=== PATIENT | male | born 1955 | race Caucasian/White ===

== ENCOUNTER 2016-08-15 18:19 | Emergency (ER) | payer OTHER, MEDICARE ==
[~2016-08-15] VITALS: Ht 182.9 cm; Wt 145.2 kg
[~2016-08-15 18:19] MED LIST: HYDROCHLOROTHIA1 TA2 PO; IBUPROFEN800 M1 PO; KEFLEX500 MG PO; MULTIVITAMIN1 TAB PO; NORCO 325 MG-51 TAB PO; OXYCODONE HCL20 M1 PO; PERCOCET 325 MG1 TA2 PO; PERCOCET 5-3251 EACH PO; POLYTRIM O200 GTT/BO OPH; VICODIN 500 MG-1 TAB PO; ZITHROMAX Z-PA250 M1 PO
[2016-08-15 18:24] VITALS: BP 168/90
--- NOTE | 2016-08-15 19:13 | ED GI/GU/ABDOMINAL COMPLAINT ---
History of Present Illness General Chief Complaint: General Adult Stated Complaint: RIGHT SIDE GROIN PAIN Source: patient Exam Limitations: no limitations Vital Signs & Intake/Output Vital Signs & Intake/Output Vital Signs Date Time Temp Pulse Resp B/P Pulse O2 O2 Flow FiO2 Ox Delivery Rate 08/15 1824 96.5 104 16 168/90 96 Room Air ED Intake and Output 08/16 0000 08/15 1200 Intake Total Output Total Balance Patient 320 lb Weight Allergies Coded Allergies: venom-honey bee (bee venom (honey bee)) (Intermediate, SWELLING 12/27/15) Penicillins (HIVES 12/27/15) Reconcile Medications LISINOPRIL/HYDROCHLOROTHIAZIDE (Lisinopril-Hctz 20-12.5 MG Tab) 1 TAB TAB 1 TAB PO BID BP (Reported) Oxycodone HCl/Acetaminophen (Percocet 5-325 MG Tablet) 5 MG-325 MG TABLET 1 TAB PO 4XDP PRN PAIN TEN...[id number] Oxycodone HCl/Acetaminophen (Percocet 5-325 MG Tablet) 1 EACH TABLET 1-2 TAB PO Q6P PRN PAIN Triage Note: 61 Y/O MALE C/O R GROIN PAIN X A FEW WEEKS; STATES HE HAD A HERNIA REPAIR IN JANUARY AND WAS DOING OK HOWEVER PAIN RETURNED AND HAS GOTTEN WORSE. REPORTS INTERMITTENT NAUSEA AND DIAPHORESIS. DENIES URINARY SYMPTOMS. DENIES HEMATURIA. STATES HE HAD A CT SCAN AT [facility] LAST WEEK AND WAS TOLD BY DR BORGES "EVERYTHING WAS FINE". STATES PAIN IS INTERMITTENT AND "STABBING" AT TIMES. Triage Nurses Notes Reviewed? yes Onset: Gradual Duration: week(s):, waxing and waning Timing: remote history Quality/Severity: cramping Location: right groin Radiation: no radiation Activities at Onset: none Prior Abdominal Problems: none Modifying Factors: Improves With: lying down, rest. Worsens With: movement, palpation. Associated Symptoms: focal probing pain in his right groin area. HPI: 61-year-old gentleman with a history of a right inguinal hernia, status post mesh repair last year. He states that, "the surgery will went fine benign feel like there is pain in the area where I had the hernia." He notes that he will experience a dull throbbing pain in the right groin area where the mesh is. He has had these symptoms for several weeks intermittently. He states that in the morning when he first wakes up he does not feel the pain. However, as he progresses through the day he feels increasing discomfort. He he has no nausea vomiting diarrhea fever chills shortness of breath dysuria. He is otherwise well. Past History Travel History Traveled to [place] past 21 day No Medical History Any Pertinent Medical History? 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 No Review of Systems Review of Systems Constitutional: Reports: no symptoms. EENTM: Reports: no symptoms. Respiratory: Reports: no symptoms. Cardiovascular: Reports: no symptoms. GI: Reports: no symptoms. Genitourinary: Reports: no symptoms. Musculoskeletal: Reports: no symptoms. Skin: Reports: no symptoms. Neurological/Psychological: Reports: no symptoms. Hematologic/Endocrine: Reports: no symptoms. Immunologic/Allergic: Reports: no symptoms. All Other Systems: Reviewed and Negative Physical Exam Physical Exam General Appearance: well developed/nourished, mild distress Head: atraumatic, normal appearance Eyes: Bilateral: normal appearance. Ears, Nose, Throat, Mouth: hearing grossly normal, dental injury, moist mucous membrane Neck: normal inspection, supple, full range of motion, normal alignment Respiratory: normal breath sounds, chest non-tender, no respiratory distress, quiet respiration, lungs clear Cardiovascular: regular rate/rhythm Gastrointestinal: right groin area is without obvious hernias. Small easily reducible umbilical hernia. Back: normal inspection, normal range of motion Extremities: normal range of motion Neurologic/Psych: no motor/sensory deficits, awake, alert, oriented x 3 Skin: intact, normal color, warm/dry Core Measures ACS in differential dx? No Severe Sepsis Present: No Septic Shock Present: No Progress Differential Diagnosis: hernia vs post op pain vs other. Plan of Care: pt to follow up with dr. borges... no obvious hernia.... prior ct scan negative. Initial ED EKG: none Departure Departure Disposition: HOME OR SELF CARE Condition: Stable Clinical Impression Primary Impression: Postoperative pain Secondary Impressions: Inguinal hernia Referrals: ROSE DELACRUZ MD (PCP/Family) Departure Forms: Customer Survey General Discharge Information Prescriptions: Current Visit Scripts Oxycodone HCl/Acetaminophen (Percocet 5-325 MG Tablet) 1 TAB PO 4XDP PRN PAIN #10 TAB TEN...[id number] Comments Patient with benign exam. I sent him home with a short course of Percocet, and encouraged him to follow-up with Dr. Borges.
[2016-08-15] MEDS ORDERED: PERCOCET 5-3251 EACH PO (19:27)
== END 2016-08-15 20:03 ==
LOC: ERH 18:19
DX: G89.18 Other acute postprocedural pain (principal); K40.90 Unilateral inguinal hernia, without obstruction or gangrene, not specified as recurrent

== ENCOUNTER 2016-08-19 15:58 | Emergency (ER) | payer OTHER, MEDICARE ==
[~2016-08-19] VITALS: Ht 182.9 cm; Wt 145.2 kg
--- NOTE | 2016-08-19 18:37 | ED GENERAL ADULT ---
History of Present Illness General Chief Complaint: Male Genitourinary Problems Stated Complaint: GROIN PAIN Source: patient Exam Limitations: no limitations Vital Signs & Intake/Output Vital Signs & Intake/Output Vital Signs Date Time Temp Pulse Resp B/P Pulse O2 O2 Flow FiO2 Ox Delivery Rate 08/190 96.7 79 18 155/87 98 Room Air 08/19 1830 77 20 172/99 97 Room Air 08/19 1612 96.5 88 18 147/81 96 Room Air Allergies Coded Allergies: venom-honey bee (bee venom (honey bee)) (Intermediate, SWELLING 12/27/15) Penicillins (HIVES 12/27/15) Reconcile Medications Cyclobenzaprine HCl 10 MG TABLET 1 TAB PO TID SPASMS Lisinopril (Prinivil) 20 MG TABLET 1 TAB PO BID BP (Reported) Meloxicam (Mobic) 15 MG TABLET 1 TAB PO DAILY pain Methylprednisolone. (Medrol) 4 MG TAB.DS.PK 1 DP PO AD BACK PAIN 6 on day 1 then reduce by one tablet daily until gone Oxycodone HCl/Acetaminophen (Percocet 5-325 MG Tablet) 5 MG-325 MG TABLET 1-2 TAB PO Q6P PRN PAIN Pantoprazole Sodium 40 MG TABLET. 1 TAB PO DAILY GI (Reported) Triage Note: PT STATES THAT HE HAD HERNIA SURGERY IN DECEMBER AND THAT HE HAS MESH IN PLACE, CAME TO ER LAST WEEK DUE TO R SIDE GROIN PAIN AND THEY FOUND NOTHING, WENT TO DR HAMILTON WHO DID THE SURGERY AND HAD CT SCAN THAT WAS FINE, PT STATES THAT HE THINKS THAT MIGHT BE SOMETHING WRONG WITH HIS HIP. WAS TAKING PERCOCET BUT RAN OUT AND HAS PAIN MANAGEMENT APPOINTMENT NEXT WEEK Triage Nurses Notes Reviewed? yes Onset: Abrupt Duration: week(s):, intermittent Timing: recent history Injury Environment: home Severity: moderate, severe No Modifying Factors: none HPI: 61-year-old male comes into emergency room with complaints of right groin pain and right back pain shooting down his right leg. Patient reports that he had a hernia repair in the spring of [address] Hamilton. He reports that he contacted Dr. Hamilton when he started experiencing this pain back in June and got an outpatient CAT scan which was normal. Symptoms have been persistent and still. Patient denies any fever chills vomiting blood in his urine chest pain shortness of breath. Patient gets tingling down his leg. Pain is worse with range of motion in the back. (LACHELLE ARGUETA) Past History Travel History Traveled to [place] past 21 day No Medical History Any Pertinent Medical History? 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 No (LACHELLE ARGUETA) Review of Systems Review of Systems Constitutional: Reports: no symptoms. EENTM: Reports: no symptoms. Respiratory: Reports: no symptoms. Cardiovascular: Reports: no symptoms. GI: Reports: no symptoms. Genitourinary: Reports: no symptoms. Musculoskeletal: Reports: see HPI. Skin: Reports: no symptoms. Neurological/Psychological: Reports: see HPI. Hematologic/Endocrine: Reports: no symptoms. Immunologic/Allergic: Reports: no symptoms. All Other Systems: Reviewed and Negative (LACHELLE ARGUETA) Physical Exam Physical Exam General Appearance: well developed/nourished, alert, awake, mild distress Head: atraumatic, normal appearance Eyes: Bilateral: normal appearance, EOMI. Ears, Nose, Throat: normal ENT inspection, hearing grossly normal Neck: normal inspection Respiratory: no respiratory distress Gastrointestinal: soft, tenderness (mild right lower quadrant) Back: decreased range of motion, right-sided paraspinal tenderness Extremities: normal inspection, normal range of motion Neurologic/Psych: awake, alert, oriented x 3, normal gait Skin: intact, normal color Core Measures ACS in differential dx? No CVA/TIA Diagnosis: No Severe Sepsis Present: No Septic Shock Present: No (LACHELLE ARGUETA) Progress Differential Diagnoses I considered the following diagnoses in my evaluation of the patient: Lumbar radiculopathy , muscle strain, hernia, kidney stone, AAA, Plan of Care: Orders Procedure Date/time Status URINALYSIS 08/19 183 Complete LIPASE 08/19 183 Complete LACTIC ACID 08/19 1836 Complete COMPREHENSIVE METABOLIC PANEL 08/19 1836 Complete CBC WITHOUT DIFFERENTIAL 08/19 1836 Complete Laboratory Tests 08/19/162136: Lactic Acid Cancelled 08/19/162006: Urine Color STRAW, Urine Clarity CLEAR, Urine pH 7.0, Ur Specific [place] 1.010, Urine Protein NEG, Urine Ketones NEG, Urine Nitrite NEG, Urine Bilirubin NEG, Urine Urobilinogen 0.2, Ur Leukocyte Esterase NEG, Ur Microscopic EXAM NOT REQUIRED, Urine Hemoglobin NEG, Urine Glucose NEG 08/19/16 184: Anion Gap 8, Estimated GFR > 60, BUN/Creatinine Ratio 22.2, Glucose 124 H, Lactic Acid 0.9, Calcium 9.0, Total Bilirubin 0.4, AST 15 L, ALT 31, Alkaline Phosphatase 108, Total Protein 6.3, Albumin 3.8, Globulin 2.5, Albumin/Globulin Ratio 1.5, Lipase 136, CBC w Diff NO MAN DIFF REQ, RBC 4.64 L, MCV 86.1, MCH 29.0, RDW 13.4, MPV 8.3, Gran % 70.0, Lymphocytes % 18.9 L, Monocytes % 7.4, Eosinophils % 3.1, Basophils % 0.6, Absolute Granulocytes 5.1, Absolute Lymphocytes 1.4, Absolute Monocytes 0.5, Absolute Eosinophils 0.2, Absolute Basophils 0, PUBS MCHC 33.7 Diagnostic Imaging: Viewed by Me: CT Scan. Discussed w/RAD: CT Scan. Radiology Impression: SERVICE DATE: 08/19/16- EXAM TYPE: CAT - CT 3D RECON REQ POST PROC; CT ABD & PELVIS W/O IV CONTRAS EXAMINATION: CT ABDOMEN AND PELVIS WITHOUT CONTRAST CT 3D RECONSTRUCTION OF THE LUMBAR SPINE CLINICAL INFORMATION: Right-sided back pain wrapping around to the glenoid. Evaluate for recurrent hernia. COMPARISON: CT abdomen and pelvis with contrast 01/27/2016. CT pelvis without contrast 08/01/2016. TECHNIQUE: Multidetector volumetric imaging was performed from the superior aspect of the liver through the pubic symphysis without intravenous contrast. Sagittal and coronal reformatted images were obtained on the technologist's workstation. 3-D reconstruction of the lumbar spine was also performed from the axial data of the CT of the abdomen and pelvis. DLP: 1600 mGy-cm. FINDINGS: Limited evaluation of the solid abdominal viscera in the absence of intravenous contrast. LUNG BASES: The visualized lung bases are unremarkable. LIVER, GALLBLADDER, AND BILIARY TREE: The liver is normal in size, shape, and attenuation. No contour deforming hepatic lesion or biliary ductal dilatation is present. The gallbladder is unremarkable with no evidence of radiopaque gallstones, gallbladder wall thickening, or obvious pericholecystic inflammatory changes. PANCREAS: Unremarkable. SPLEEN: Unremarkable. ADRENAL GLANDS: Unremarkable. 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 Redemonstrated are hypoattenuating lesions within the right kidney, corresponding to previously identified simple renal cortical cysts. There is a punctate 2 mm nonobstructing stone within the midpole of the left kidney. No ureteral stones are identified and there is no hydroureteronephrosis of either kidney or renal collecting system. BLADDER: Unremarkable. GASTROINTESTINAL TRACT: Normal anatomic orientation of the stomach relative to the duodenum. Normal caliber of abdominal and pelvic bowel loops, without evidence of obstruction or ileus. No circumferential bowel wall thickening with surrounding inflammatory changes to suggest an underlying infectious or inflammatory enterocolitis. Nonvisualization of the appendix. No acute inflammatory changes within the right lower quadrant of the abdomen. Scattered colonic diverticulosis, notably involving the rectosigmoid colon, without secondary signs of acute diverticulitis. No organizing intra-abdominal fluid collections or free intraperitoneal air. ABDOMINAL WALL: Postsurgical changes related to prior bilateral inguinal hernia repairs. No evidence of recurrent hernia. LYMPH NODES: No significant abdominal or pelvic adenopathy. VASCULAR: Normal course and caliber of the abdominal aorta and its branching vessels, without aneurysmal dilatation. Limited evaluation for vascular patency in the absence of intravenous contrast. PELVIC VISCERA: Unremarkable. OSSEOUS STRUCTURES: No acute osseous abnormality. Normal alignment of the imaged thoracolumbar spine. LUMBAR SPINE RECONSTRUCTION: There are 5 nonrib-bearing lumbar vertebral bodies. There are confluent anterior disc osteophytes along the lumbar spine, notably anterior to the L1, L2 and L3 vertebral bodies. There is relative preservation of the intervertebral disc spaces. This constellation of findings suggests diffuse idiopathic skeletal hyperostosis of the lumbar spine. There is moderate multilevel facet arthrosis of the lumbar spine. No acute lumbar vertebral compression deformities are identified. There is no visible cortical destruction or significant periosteal reaction. There is questionable congenital narrowing of the spinal canal posterior to the lumbar spine. For instance, posterior to the L3 vertebral body, the spinal canal has in AP diameter of 1.2 centimeters. IMPRESSION: 1. No acute findings within the abdomen or pelvis to explain patient symptomatology. Postsurgical changes related to prior bilateral inguinal hernia appears. No evidence of recurrent hernia. 2. No acute findings along the lumbar spine. Findings suggestive of diffuse idiopathic skeletal hyperostosis of the lumbar spine, as noted above. This is an incidental finding and likely of no clinical significance. There is questionable congenital narrowing of the spinal canal, with the spinal canal visualized measuring up to 1.2 cm in AP diameter posterior to the L3 vertebral body. Initial ED EKG: none (ALIYAH BURNETT,LACHELLE) Departure Departure Disposition: HOME OR SELF CARE Condition: Stable Clinical Impression Primary Impression: Lumbar radiculopathy Referrals: DEE SOTO,VISHAL DELACRUZ MD,ROSE (PCP/Family) Additional Instructions: Take Medrol Dosepak, Percocet, Flexeril, and multiple back as prescribed. Follow-up with orthopedic doctor provided. Return if any concerns worsening symptoms. You will require outpatient MRI of your lower back. Please go over all results of today's visit with your primary care doctor. Contact your primary care doctor to let them know you were here in the emergency room. There may be nonspecific findings which may not be related to your visit today here in the emergency room but may require further evaluation and chronic monitoring by your primary care doctor. If you had a laceration today the chance of foreign body always remains. You should follow-up with your primary care doctor for recheck in 3-5 days for a wound check. If you had an x-ray done there is a chance that a fracture could have been missed on initial read and you should follow-up with your primary care doctor for repeat x-rays if symptoms persist. If your blood pressure was elevated here in the emergency room please have rechecked by her primary care doctor within the next 48 hours by your primary care doctor. If you were prescribed a narcotic here in the emergency room or any type of controlled substances you're not allowed to drive while taking this medication or operate any type of heavy machinery. Narcotics can make you feel lightheaded dizziness nausea and can cause constipation. 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 Thank you for choosing [facility] emergency room. Please return to the emergency room immediately if you have any other concerns worsening of symptoms. Departure Forms: Customer Survey General Discharge Information Prescriptions: Current Visit Scripts Meloxicam (Mobic) 1 TAB PO DAILY #10 TAB Cyclobenzaprine HCl 1 TAB PO TID #20 TAB Oxycodone HCl/Acetaminophen (Percocet 5-325 MG Tablet) 1-2 TAB PO Q6P PRN PAIN #15 TAB Methylprednisolone. (Medrol) 1 DP PO AD #1 DP 6 on day 1 then reduce by one tablet daily until gone Comments 08/19/2016 8:42:03 PM pt clinically looks well. Nontoxic-appearing. In no apparent distress. Symptoms are most consistent with lumbar radiculopathy as opposed to hernia. No acute findings on CAT scan. Pain radiates from right back into groin and down leg. Patient told to follow-up with orthopedic doctor for outpatient MRI. Reevaluated multiple times. Feels better after medication here. Patient has a ride and will not be driving. (LACHELLE ARGUETA) PA/[employer]TEGRATION DEVELOPER Co-Sign Statement Statement: ED Attending supervision documentation- [X] I saw and evaluated the patient. I have also reviewed all the pertinent lab results and diagnostic results. I agree with the findings and the plan of care as documented in the PA's/[employer]TEGRATION DEVELOPER's documentation. [X] I have reviewed the ED Record and agree with the PA's/[employer] INTEGRATION DEVELOPER's documentation. [] Additions or exceptions (if any) to the PAs/[employer] INTEGRATION DEVELOPER's note and plan are summarized below: [] (ZENY SOTO,NINI Addison) Critical Care Note Critical Care Note Critical Care Time: non-applicable (LACHELLE ARGUETA)
[2016-08-19 18:51] LABS: ABSOLUTE BASOPHIL COUNT 0 /CUMM (0.0-0.2); ABSOLUTE EOSINOPHIL COUNT 0.2 /CUMM (0.0-0.7); ABSOLUTE GRANULOCYTE CT 5.1 /CUMM (1.4-6.5); ABSOLUTE LYMPH COUNT 1.4 /CUMM (1.2-3.4); ABSOLUTE MONOCYTE COUNT 0.5 /CUMM (0.10-0.60); BASOPHIL % 0.6 % (0.0-2.0); EOSINOPHIL % 3.1 % (0-5); MEAN CORPUSCULAR HGB CONC 33.7 G/DL (33.0-37.0); MEAN CORPUSCULAR VOLUME 86.1 FL (80.0-94.0); MEAN PLATELET VOLUME 8.3 FL (7.4-10.4); PLATELET COUNT 216 /CUMM (130-400); RBC DISTRIBUTION WIDTH 13.4 % (11.5-14.5); RED BLOOD CELL CT 4.64 /CUMM (4.70-6.10); WHITE BLOOD CELL COUNT 7.4 /CUMM (4.8-10.8)
[2016-08-19] MEDS ORDERED: PANTOPRAZOLE SO40 M1 PO (19:15)
[2016-08-19] MEDS ORDERED: PRINIVIL20 M1 PO (19:15)
--- NOTE | 2016-08-19 19:46 | CT SCAN REPORT ---
EXAMINATION: CT ABDOMEN AND PELVIS WITHOUT CONTRAST CT 3D RECONSTRUCTION OF THE LUMBAR SPINE CLINICAL INFORMATION: Right-sided back pain wrapping around to the glenoid. Evaluate for recurrent hernia. COMPARISON: CT abdomen and pelvis with contrast 01/27/2016. CT pelvis without contrast 08/01/2016. TECHNIQUE: Multidetector volumetric imaging was performed from the superior aspect of the liver through the pubic symphysis without intravenous contrast. Sagittal and coronal reformatted images were obtained on the technologist's workstation. 3-D reconstruction of the lumbar spine was also performed from the axial data of the CT of the abdomen and pelvis. DLP: 1600 mGy-cm. FINDINGS: Limited evaluation of the solid abdominal viscera in the absence of intravenous contrast. LUNG BASES: The visualized lung bases are unremarkable. LIVER, GALLBLADDER, AND BILIARY TREE: The liver is normal in size, shape, and attenuation. No contour deforming hepatic lesion or biliary ductal dilatation is present. The gallbladder is unremarkable with no evidence of radiopaque gallstones, gallbladder wall thickening, or obvious pericholecystic inflammatory changes. PANCREAS: Unremarkable. SPLEEN: Unremarkable. ADRENAL GLANDS: Unremarkable. 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 Redemonstrated are hypoattenuating lesions within the right kidney, corresponding to previously identified simple renal cortical cysts. There is a punctate 2 mm nonobstructing stone within the midpole of the left kidney. No ureteral stones are identified and there is no hydroureteronephrosis of either kidney or renal collecting system. BLADDER: Unremarkable. GASTROINTESTINAL TRACT: Normal anatomic orientation of the stomach relative to the duodenum. Normal caliber of abdominal and pelvic bowel loops, without evidence of obstruction or ileus. No circumferential bowel wall thickening with surrounding inflammatory changes to suggest an underlying infectious or inflammatory enterocolitis. Nonvisualization of the appendix. No acute inflammatory changes within the right lower quadrant of the abdomen. Scattered colonic diverticulosis, notably involving the rectosigmoid colon, without secondary signs of acute diverticulitis. No organizing intra-abdominal fluid collections or free intraperitoneal air. ABDOMINAL WALL: Postsurgical changes related to prior bilateral inguinal hernia repairs. No evidence of recurrent hernia. LYMPH NODES: No significant abdominal or pelvic adenopathy. VASCULAR: Normal course and caliber of the abdominal aorta and its branching vessels, without aneurysmal dilatation. Limited evaluation for vascular patency in the absence of intravenous contrast. PELVIC VISCERA: Unremarkable. OSSEOUS STRUCTURES: No acute osseous abnormality. Normal alignment of the imaged thoracolumbar spine. LUMBAR SPINE RECONSTRUCTION: There are 5 nonrib-bearing lumbar vertebral bodies. There are confluent anterior disc osteophytes along the lumbar spine, notably anterior to the L1, L2 and L3 vertebral bodies. There is relative preservation of the intervertebral disc spaces. This constellation of findings suggests diffuse idiopathic skeletal hyperostosis of the lumbar spine. There is moderate multilevel facet arthrosis of the lumbar spine. No acute lumbar vertebral compression deformities are identified. There is no visible cortical destruction or significant periosteal reaction. There is questionable congenital narrowing of the spinal canal posterior to the lumbar spine. For instance, posterior to the L3 vertebral body, the spinal canal has in AP diameter of 1.2 centimeters. IMPRESSION: 1. No acute findings within the abdomen or pelvis to explain patient symptomatology. Postsurgical changes related to prior bilateral inguinal hernia appears. No evidence of recurrent hernia. 2. No acute findings along the lumbar spine. Findings suggestive of diffuse idiopathic skeletal hyperostosis of the lumbar spine, as noted above. This is an incidental finding and likely of no clinical significance. There is questionable congenital narrowing of the spinal canal, with the spinal canal visualized measuring up to 1.2 cm in AP diameter posterior to the L3 vertebral body.
[2016-08-19] MEDS ORDERED: PERCOCET 5-3251 EACH PO (20:30)
[2016-08-19] MEDS ORDERED: MOBIC15 M1 PO (20:30)
[2016-08-19] MEDS ORDERED: MEDROL4 M2 PO (20:30)
[2016-08-19] MEDS ORDERED: CYCLOBENZAPRINE10 M1 PO (20:30)
[2016-08-19 21:10] VITALS: BP 155/87
== END 2016-08-19 21:11 ==
LOC: ERH 15:58
PROVIDERS: Physician Assistant Medical
DX: M54.16 Radiculopathy, lumbar region (principal)
CPT/HCPCS: 74176; 81003; 96372; J3360

== ENCOUNTER 2016-09-07 19:47 | Emergency (ER) | payer OTHER, MEDICARE ==
[~2016-09-07 19:47] MED LIST changes: +CYCLOBENZAPRINE10 M1 PO; +MEDROL4 M2 PO; +MOBIC15 M1 PO; +PANTOPRAZOLE SO40 M1 PO; +PRINIVIL20 M1 PO
[2016-09-07 19:50] VITALS: BP 133/85
--- NOTE | 2016-09-07 19:55 | ED UPPER/LOWER EXTREMITY COMPL ---
History of Present Illness General Chief Complaint: Hand or Wrist Injury Stated Complaint: "?INGROWN THUMB NAIL" Source: patient Exam Limitations: no limitations Vital Signs & Intake/Output Vital Signs & Intake/Output Vital Signs Date Time Temp Pulse Resp B/P Pulse O2 O2 Flow FiO2 Ox Delivery Rate 09/07 1949 96.8 94 16 133/85 97 Room Air Allergies Coded Allergies: venom-honey bee (bee venom (honey bee)) (Intermediate, SWELLING 09/07/16) Penicillins (HIVES 09/07/16) Reconcile Medications Cephalexin (Keflex) 500 MG CAPSULE 1 CAP PO 4 TIMES/DAY cellulitis x 10 days Cyclobenzaprine HCl 10 MG TABLET 1 TAB PO TID SPASMS Lisinopril (Prinivil) 20 MG TABLET 1 TAB PO BID BP (Reported) Meloxicam (Mobic) 15 MG TABLET 1 TAB PO DAILY pain Methylprednisolone. (Medrol) 4 MG TAB.DS.PK 1 DP PO AD BACK PAIN 6 on day 1 then reduce by one tablet daily until gone Oxycodone HCl/Acetaminophen (Percocet 5-325 MG Tablet) 5 MG-325 MG TABLET 1-2 TAB PO Q6P PRN PAIN Pantoprazole Sodium 40 MG TABLET.DR 1 TAB PO DAILY GI (Reported) Sulfamethoxazole/Trimethoprim (Bactrim Ds Tablet) 800 MG-160 MG TABLET 1 TAB PO BID cellulitis Triage Note: PT TO ED C/O RIGHT THUMB ?INFECTION. DR. LR IN TRIAGE FOR EVAL Triage Nurses Notes Reviewed? yes Onset: Gradual Duration: day(s):, waxing and waning Timing: recent history Severity: mild, moderate Pain/Injury Location: Right: 1st finger. Method of Injury: "I was cutting my nails" No Modifying Factors: none Modifying Factors: Worsens With: rest. Associated Symptoms: swelling, redness HPI: 61-year-old gentleman presents with right thumb pain the past 2 days. He notes that 2 days ago he was cutting his nails. Shortly thereafter he noticed that his right thumb was becoming increasingly red and swollen and tender. He has no pain in the joint or in the rest of his hand. He has no fever chills nausea vomiting diarrhea he is otherwise well. Past History Travel History Traveled to [place] past 21 day No Medical History Any Pertinent Medical History? 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 No Review of Systems Review of Systems Constitutional: Reports: no symptoms. EENTM: Reports: no symptoms. Respiratory: Reports: no symptoms. Cardiovascular: Reports: no symptoms. Gastrointestinal/Abdominal: Reports: no symptoms. Genitourinary: Reports: no symptoms. Musculoskeletal: Reports: no symptoms. Skin: Reports: no symptoms. Neurological/Psychological: Reports: no symptoms. Hematologic/Endocrine: Reports: no symptoms. Immunological: Reports: no symptoms. All Other Systems: Reviewed and Negative Physical Exam Physical Exam General Appearance: well developed/nourished, mild distress Head: atraumatic Ears, Nose, Throat: normal ENT inspection Hand Right: 1st finger, right thumb with mild erythema, tenderness to palpaion, scant discharge from medial aspect of nail. no sign of abscess. Progress Differential Diagnosis: paronychia vs abscess Plan of Care: discussed at length... prescribed keflex/bactrim... advocated close follow up. Departure Departure Disposition: HOME OR SELF CARE Condition: Stable Clinical Impression Primary Impression: Paronychia of right thumb Referrals: ROSE DELACRUZ MD (PCP/Family) Departure Forms: Customer Survey General Discharge Information Prescriptions: Current Visit Scripts Cephalexin (Keflex) 1 CAP PO 4 TIMES/DAY #40 CAP x 10 days Sulfamethoxazole/Trimethoprim (Bactrim Ds Tablet) 1 TAB PO BID #20 TAB
[2016-09-07] MEDS ORDERED: KEFLEX500 M1 PO (19:56)
[2016-09-07] MEDS ORDERED: BACTRIM DS TAB1 EACH PO (19:56)
== END 2016-09-07 20:04 ==
LOC: ERH 19:47
DX: L03.011 Cellulitis of right finger (principal)

== ENCOUNTER 2017-01-14 21:19 | Emergency (ER) | payer OTHER, MEDICARE ==
[~2017-01-14] VITALS: Ht 182.9 cm; Wt 147.4 kg
[~2017-01-14 21:19] MED LIST changes: +BACTRIM DS TAB1 EACH PO; +KEFLEX500 M1 PO
[2017-01-14 21:29] VITALS: BP 122/81
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
[2017-01-14] MEDS ORDERED: CYCLOBENZAPRINE10 M1 PO (23:27)
[2017-01-14] MEDS ORDERED: MOBIC15 M1 PO (23:27)
== END 2017-01-15 00:04 ==
LOC: ERH 21:19
DX: S29.011A Strain of muscle and tendon of front wall of thorax, initial encounter (principal); S39.012A Strain of muscle, fascia and tendon of lower back, initial encounter; V09.20XA Pedestrian injured in traffic accident involving unspecified motor vehicles, initial encounter; Y92.89 Other specified places as the place of occurrence of the external cause; Y93.9 Activity, unspecified
CPT/HCPCS: 71100-LT; 72100